=== PATIENT | female | born 1980 | race African-American/Black ===

== ENCOUNTER 2017-04-28 08:36 | Inpatient (IN) | payer MEDICAID ==
[~2017-04-28] VITALS: Ht 165.1 cm; Wt 79.8 kg
[~2017-04-28 08:36] MED LIST: IBUPROFEN; [UNRECOGNIZED DRUG - OTHER]
[2017-04-28] MEDS ORDERED: LISI10TA5 PO (08:53)
[2017-04-28] MEDS ORDERED: SODIUM CHLORIDE 0.9% 1,000 ML IV ONE (09:12)
[2017-04-28] MEDS ORDERED: DIPHENHYDRAMINE 50MG/ML VIAL IV ONE (09:15)
[2017-04-28] MEDS ORDERED: METHYLPREDNISOLONE SOD SUCC 125 MG/2 ML VIAL IV ONE (09:15)
[2017-04-28] MEDS ORDERED: FAMOTIDINE 20MG/2ML VIAL IV ONE (09:15)
[2017-04-28 09:36] LABS: BASOPHILS % 0.7 % (0.0-2.0); EOSINOPHILS % 0.5 % (0.0-5.0); HEMATOCRIT. 37.8 % (36.0-48.0); HEMOGLOBIN. 12.1 g/dL (12.0-16.0); LYMPHOCYTES % 27.4 % (20.0-50.0); MEAN CORPUSCULAR HEMOGLOBIN 25.8 pg (28.0-32.0); MEAN CORPUSCULAR VOLUME 80.7 fL (81.0-99.0); MEAN PLATELET VOLUME 8.9 fl (7.4-10.4); MONOCYTES % 4.3 % (2.0-8.0); NEUTROPHILS % 67.1 % (40.0-76.0); PLATELET 280 x1000/uL (130-400); RED BLOOD CELL COUNT 4.68 mill/uL (4.2-5.4); RED CELL DISTRIBUTION WIDTH 13.7 % (11.6-14.6)
[2017-04-28 09:40] LABS: CHLORIDE 106 mEq/L (98-107)
[2017-04-28 09:42] LABS: PARTIAL THROMBOPLASTIN TIME 25.8 sec (23.4-31.0); PROTHROMBIN TIME 10.6 sec (9.4-11.6)
[2017-04-28 09:46] LABS: CARBON DIOXIDE 25 mEq/L (21-32)
[2017-04-28 09:58] LABS: HCG SCREEN NEGATIVE
[2017-04-28] MEDS ORDERED: EPINEPHRINE 1:1000 1 MG/ML AMP INJ ONE (11:45)
[2017-04-28] MEDS ORDERED: ONDANSETRON HCL 4MG/2ML VIAL IV PRN (13:00)
[2017-04-28] MEDS ORDERED: CLONIDINE 0.1MG TABLET PO PRN (13:00)
[2017-04-28] MEDS ORDERED: DIPHENHYDRAMINE 50MG/ML VIAL IV PRN (13:00)
[2017-04-28 17:45] VITALS: BP 124/81
[2017-04-28 20:00] VITALS: BP 113/67
[2017-04-28] MEDS ORDERED: NORG1TAB88 PO (20:02)
[2017-04-28] MEDS: METHYLPREDNISOLONE SOD SUCC 40 MG/ML VIAL IV SCH (20:46)
[2017-04-29] VITALS: BP 106/64
[2017-04-29] MEDS: METHYLPREDNISOLONE SOD SUCC 40 MG/ML VIAL IV SCH ×2 (02:13→09:49)
[2017-04-29 04:00] VITALS: BP 112/65
[2017-04-29 08:00] VITALS: BP 114/67
[2017-04-29 08:42] LABS: CARBON DIOXIDE 24 mEq/L (21-32); CHLORIDE 107 mEq/L (98-107)
[2017-04-29] MEDS ORDERED: NORGESTIMATE ETHINYL ESTRADIOL PO SCH (09:00)
[2017-04-29] MEDS ORDERED: FAMOTIDINE 20MG/2ML VIAL IV SCH (09:00)
[2017-04-29] MEDS ORDERED: AMLODIPINE 10MG TABLET PO SCH (09:00)
[2017-04-29 10:08] VITALS: BP 114/67
== END 2017-04-29 11:30 | disposition home or self-care (01) | DRG 811 ==
LOC: ER 08:55 → 8WST 11:54 → ENRESERV 16:44 → 8WST 18:26
PROVIDERS: ADMIT Internal Medicine; ATTEND Internal Medicine
DX: T78.3XXA Angioneurotic edema, initial encounter (principal); I10 Essential (primary) hypertension; T46.4X5A Adverse effect of angiotensin-converting-enzyme inhibitors, initial encounter; I49.3 Ventricular premature depolarization; Z79.899 Other long term (current) drug therapy
CPT/HCPCS: 36415; 71045; 80048; 80053; 84484; 84703; 85025; 85610; 85730; 86850; 86900; 86927; 93005; 96361; 96374; 96375; 99285; J0171; J1200; J2920; J2930; J3490; J7030; P9017

== ENCOUNTER 2018-04-24 09:51 | Emergency (ER) | payer MEDICAID ==
[~2018-04-24] VITALS: Ht 165.1 cm; Wt 75.0 kg
[~2018-04-24 09:51] MED LIST changes: +NORG1TAB88 PO
[2018-04-24 14:30] LABS: BASOPHILS % 0.6 % (0.0-2.0); CHLORIDE 105 mEq/L (98-107); EOSINOPHILS % 0.5 % (0.0-5.0); HEMATOCRIT. 39.2 % (36.0-48.0); HEMOGLOBIN. 12.8 g/dL (12.0-16.0); MEAN CORPUSCULAR HEMOGLOBIN 26.2 pg (28.0-32.0); MEAN CORPUSCULAR VOLUME 80.2 fL (81.0-99.0); MONOCYTES % 4.3 % (2.0-8.0); NEUTROPHILS % 70.6 % (40.0-76.0); RED BLOOD CELL COUNT 4.89 mill/uL (4.2-5.4); RED CELL DISTRIBUTION WIDTH 14.5 % (11.6-14.6)
[2018-04-24 15:12] LABS: MEAN PLATELET VOLUME 9.9 fl (7.4-10.4); PLATELET 282 x1000/uL (130-400)
[2018-04-24 15:30] VITALS: BP 127/85
== END 2018-04-24 15:30 | disposition home or self-care (01) ==
LOC: ER 09:51
DX: K04.7 Periapical abscess without sinus (principal); R22.0 Localized swelling, mass and lump, head; I10 Essential (primary) hypertension; Z88.0 Allergy status to penicillin; Z79.899 Other long term (current) drug therapy
CPT/HCPCS: 36415; 80048; 81025; 86140; 99283

== ENCOUNTER 2025-01-21 06:23 | Emergency (ER) | payer MEDICAID ==
[~2025-01-21] VITALS: Ht 165.1 cm; Wt 75.0 kg
[2025-01-21 06:24] VITALS: O2SAT 98
[2025-01-21 07:04] LABS: BASOPHILS % 1.0 % (0.0-2.0); EOSINOPHILS % 1.4 % (0.0-5.0); HEMATOCRIT. 25.2 % (36.0-48.0); HEMOGLOBIN. 7.1 g/dL (12.0-16.0); LYMPHOCYTES % 33.4 % (20.0-50.0); MEAN PLATELET VOLUME 8.6 fl (7.4-10.4); MONOCYTES % 8.9 % (2.0-8.0); NEUTROPHILS % 55.3 % (40.0-76.0); PLATELET 422 x1000/uL (130-400); RED BLOOD CELL COUNT 4.45 mill/uL (4.2-5.4); RED CELL DISTRIBUTION WIDTH 21.2 % (11.6-14.6)
[2025-01-21 07:12] LABS: ADD RBC MORPHOLOGY YES
[2025-01-21 07:24] LABS: CREATININE 1.0 mg/dL (0.6-1.0); UREA NITROGEN BLOOD 10 mg/dL (9-23)
[2025-01-21 07:25] LABS: CLARITY URINE CLEAR (CLEAR); COLOR URINE YELLOW (YELLOW); GLUCOSE URINE NEGATIVE (NEGATIVE); KETONES URINE NEGATIVE (NEGATIVE); LEUKOCYTE ESTERASE URINE NEGATIVE (NEGATIVE); NITRITE URINE NEGATIVE (NEGATIVE); OCCULT BLOOD URINE NEGATIVE (NEGATIVE); PH URINE 8.5 (4.5-8.0); PROTEIN URINE NEGATIVE (NEGATIVE); SPECIFIC GRAVITY URINE 1.005 (1.005-1.030); UROBILINOGEN URINE 0.2 E.U./dL (0.2-1.0)
[2025-01-21 07:25] LABS: TROPONIN I HIGH SENSITIVITY < 4 ng/L (3.0-34)
[2025-01-21] MEDS: POTASSIUM CHLORIDE 20MEQ/PACKET PO ONE (08:01)
[2025-01-21 08:08] VITALS: BP 159/71; PULSE 68; RESP 20; TEMP 36.9; O2SAT 98
[2025-01-21 08:23] LABS: PLATELET ESTIMATE SLIGHTLY INCREASED
== END 2025-01-21 08:10 | disposition home or self-care (01) ==
LOC: ER 06:23
DX: R07.89 Other chest pain (principal); I10 Essential (primary) hypertension; E87.6 Hypokalemia; Z88.0 Allergy status to penicillin; Z88.8 Allergy status to other drugs, medicaments and biological substances
CPT/HCPCS: 36415; 71045; 80048; 81003; 81025; 84484; 85025; 93005; 99285